=== PATIENT | male | born 1930 | race Two or more races ===

== ENCOUNTER 2016-11-19 21:00 | Emergency (ER) | payer MEDICARE ==
[~2016-11-19] VITALS: Ht 177.8 cm; Wt 99.8 kg
[2016-11-19 21:00] VITALS: BP 135/60
[2016-11-19] MEDS ORDERED: NORVASC10 MG ORAL (21:07)
[2016-11-19] MEDS ORDERED: ECOTRIN325 MG ORAL (21:07)
[2016-11-19] MEDS ORDERED: CASODEX50 MG ORAL (21:11)
[2016-11-19] MEDS ORDERED: TRAZODONE HCL150 MG ORAL (21:11)
[2016-11-19] MEDS ORDERED: PLAVIX75 MG ORAL (21:11)
[2016-11-19] MEDS ORDERED: VITAMIN D1000 UNI1 ORAL (21:11)
[2016-11-19] MEDS ORDERED: ATORVASTATIN CA80 MG ORAL (21:11)
[2016-11-19] MEDS ORDERED: SYMLIN600 MCG/1 SUBQ (21:11)
[2016-11-19] MEDS ORDERED: ROCALTROL0.25 MCG PO (21:11)
--- NOTE | 2016-11-19 21:23 | Emergency Room Report ---
History of Present Illness General Chief Complaint: Dizziness Source: Patient Present Illness HPI This 86-year-old male resided in a care home. He present with chief complaint of dizziness onset was around 6 PM. He was in bed watching the news when he felt lightheaded. Denies any fever chills denies room or himself spinning. Never had this problem before. No palpitation. No chest pain. No shortness of breath. He was able to get up and walk to the nursing station to let the nurses know. The taken back to his room to check his blood sugar which was 123. His blood pressure was normal. He was laying in bed and was concerned of his symptoms and got anxious. He wanted to come in to be checked out. His better now. Denies any other complaint. No focal deficit. No slurred speech. Allergies: Coded Allergies: No Known Allergies (Unverified , 11/19/16) Patient History Past Medical History: see triage record, old chart reviewed Past Surgical History: other Pertinent Family History: none Social History: Denies: drug use Immunizations: other Reviewed Nursing Documentation: PMH: Agreed, PSxH: Agreed Nursing Documentation-PMH Hx Hypertension: Yes - HYPERLIPIDEMIA Hx Diabetes: Yes Review of Systems Eye: Denies: blurred vision, eye pain ENT: Denies: ear pain, nose congestion, throat swelling Respiratory: Denies: cough, shortness of breath Cardiovascular: Denies: chest pain, palpitations Gastrointestinal: Denies: abdominal pain, diarrhea, nausea, vomiting Musculoskeletal: Denies: back pain, joint pain Skin: Denies: rash Neurological: Denies: headache, numbness Endocrine: Denies: increased thirst, increased urine Hematologic/Lymphatic: Denies: easy bruising All Other Systems: negative except mentioned in HPI Physical Exam Vital Signs Date Time Temp Pulse Resp B/P Pulse Ox O2 Delivery O2 Flow Rate FiO2 11/19/16 20:54 87 16 148/76 96 Room Air vitals normal Sp02 EP Interpretation: reviewed, normal General Appearance: well appearing, no apparent distress, alert Head: normocephalic, atraumatic Eyes: bilateral eye EOMI, bilateral eye PERRL ENT: hearing grossly normal, normal pharynx Neck: full range of motion, supple, no meningismus Respiratory: chest non-tender, lungs clear, normal breath sounds Cardiovascular #1: regular rate, rhythm, no murmur Gastrointestinal: normal bowel sounds, non tender, no mass, no organomegaly, no bruit, non-distended Musculoskeletal: back normal, gait/station normal, normal range of motion Psychiatric: mood/affect normal Skin: warm/dry Medical Decision Making Diagnostic Impression: Primary Impression: Dizziness Additional Impressions: Hyperglycemia due to type 2 diabetes mellitus Qualified Codes: E11.65 - Type 2 diabetes mellitus with hyperglycemia; Z79.4 - [facility] (current) use of insulin Proteinuria Qualified Codes: R80.9 - Proteinuria, unspecified CKD (chronic kidney disease) Qualified Codes: N18.9 - Chronic kidney disease, unspecified ER Course Patient presents with dizziness which resolved. No evidence of ACS, PE, TIA to name a few. He felt better now. I spoke with his cousin who has power of patent attorney and the phone. She said that he does have kidney problems and no creatinine appeared to be at baseline. Lab Results Impression labs with elevated creatinine EKG Diagnostic Results Rate: normal Rhythm: NSR ST Segments: no acute changes Rhythm Strip Diag. Results EP Interpretation: yes Rate: 80 Rhythm: NSR, no PVC's, no ectopy Chest X-Ray Diagnostic Results EP Interpretation: Yes Findings: no consolidation, no effusion, no pneumothorax, no acute cardiopulmonary disease Number of Views: 1 Last Vital Signs Date Time Temp Pulse Resp B/P Pulse Ox O2 Delivery O2 Flow Rate FiO2 11/19/16 20:54 87 16 148/76 96 Room Air Status: improved Disposition: XFER SNF Condition: Stable Patient Instructions: Dizziness Additional Instructions: Followup with your doctor 7 days. Return if symptom worsen. CLARISA GARCIA M.D. Nov 19, 2016 21:23
[2016-11-19 22:36] LABS: APPEARANCE,URINE CLEAR; BASOPHILS % (AUTO) 1.2 % (0.0-2.0); EOSINOPHILS % (AUTO) 3.7 % (0.0-3.0); KETONES,URINE NEGATIVE (NEGATIVE); LEUKOCYTE ESTERASE ,URINE NEGATIVE (NEGATIVE); LYMPHOCYTES % (AUTO) 14.6 % (20.0-45.0); MEAN CORPUSCULAR HEMOGLOBIN 32.4 PG (27.0-31.0); MEAN CORPUSCULAR HGB CONC 34.2 G/DL (32.0-36.0); MEAN CORPUSCULAR VOLUME 95 FL (80-99); MEAN PLATELET VOLUME 7.4 FL (6.5-10.1); MONOCYTES % (AUTO) 5.6 % (1.0-10.0); NITRITE,URINE NEGATIVE (NEGATIVE); PH,URINE 6.5 (4.5-8.0); PLATELET COUNT 249 K/UL (150-450); PROTEIN,URINE 3+ (NEGATIVE); RED BLOOD COUNT 3.72 M/UL (4.70-6.10); RED CELL DISTRIBUTION WIDTH 11.5 % (11.6-14.8); UROBILINOGEN,URINE NORMAL MG/DL (0.0-1.0)
[2016-11-19 22:52] LABS: ALANINE AMINOTRANSFERASE 12 U/L (3-41); ALBUMIN/GLOBULIN RATIO 1.6 (1.0-2.7); ANION GAP 16 (5-15); ASPARTATE AMINO TRANSFERASE 16 U/L (5-40); CALCIUM 9.9 mg/dL (8.6-10.2); CARBON DIOXIDE 26 mEQ/L (20-30); CHLORIDE 97 mEQ/L (98-107); CREATININE 2.6 mg/dL (0.7-1.2); HEMOLYSIS 21; POTASSIUM 4.3 mEQ/L (3.4-4.9); SODIUM 139 mEQ/L (135-145); TOTAL PROTEIN 6.7 g/dL (6.6-8.7); TROPONIN I < 0.30 ng/mL (<=0.30)
[2016-11-19 22:56] LABS: BACTERIA,URINE FEW /HPF; WBC,URINE 0-2 /HPF (0 - 0)
[2016-11-19 23:03] LABS: CKMB 1.8 ng/mL (< 6.7)
[2016-11-20] VITALS: BP 128/68
--- NOTE | 2016-11-20 11:12 | Diagnostic Imaging Report ---
Indication: Chest pain Technique: Single portable AP view of the chest. Findings: Comparison: None. The bones and extra pulmonary soft tissues, cardiomediastinal silhouette, pulmonary vasculature and parenchyma, and pleural surfaces are unremarkable. IMPRESSION: Negative portable AP chest.
--- NOTE | 2016-11-23 07:59 | Cardiology Report ---
APPROVED REPORT EKG Measurement Heart [id number] VT [id number] Sinus rhythm with 1st degree AV block Left axis deviation Abnormal ECG
== END 2016-11-20 ==
LOC: EDBD 21:00 → EMR 21:30
DX: R42 Dizziness and giddiness (principal); E11.65 Type 2 diabetes mellitus with hyperglycemia; E78.5 Hyperlipidemia, unspecified; N18.9 Chronic kidney disease, unspecified
CPT/HCPCS: 36415; 71010; 80053; 81003; 82550; 82553; 84484; 85025; 93005; 99283